=== PATIENT | male | born 1960 | race Caucasian/White ===

== ENCOUNTER → 2017-06-11 | Day surgery (SDC) | payer OTHER ==
--- NOTE | 2017-06-08 13:00 | NUR ---
EKG AND LAB TESTS SENT TO [facility] FOR REVIEW, EKG AND LABS OKAY FOR SURGERY 06-11-[address] Tony OLSEN.
[~2017-06-11] VITALS: Ht 170.2 cm; Wt 77.6 kg
[2017-06-11 06:09] VITALS: BP 159/79
[2017-06-11 11:29] VITALS: BP 140/70
== END | disposition home or self-care (01) ==
LOC: DS 05:57
PROVIDERS: Neuromusculoskeletal Medicine, Sports Medicine
PROC: 0RNK0ZZ Release Left Shoulder Joint, Open Approach (ICD-10-PCS; 2017-06-11)
PROC: 0LQ20ZZ Repair Left Shoulder Tendon, Open Approach (ICD-10-PCS; principal; 2017-06-11 07:30)
DX: M75.112 Incomplete rotator cuff tear or rupture of left shoulder, not specified as traumatic (principal)
CPT/HCPCS: C1713; J0330; J0690; J2250; J2270; J2405; J2704; J2710; J3010; J3490; J7120